=== PATIENT | male | born 1945 | race Caucasian/White ===

== ENCOUNTER 2016-07-21 22:44 | Inpatient (IN) | payer MEDICARE, OTHER, MEDICAID ==
[~2016-07-21] VITALS: Ht 162.6 cm; Wt 93.0 kg
--- NOTE | 2016-07-22 19:02 | ER ---
ADMIT: 07/21/2016 RM/LOC: ER [facility] MR#: [id number] [id number] [facility] [address] [place] [id number] JANINE HERNANDES [facility] [place] [address] Emergency Room Report SEX: M AGE: 71 : 1945 DATE: 07/21/2016 CHIEF COMPLAINT: Delirium. HISTORY OF PRESENT ILLNESS: The patient is a 71-year-old male with dementia, transferred from [facility] after becoming acutely delirious tonight at family gathering, excused himself, told his he is going to go take a shower. found him after an inappropriate amount of time in the bedroom on the treadmill naked, could not be redirected to the bathroom to take a shower, became worried when he dressed himself by putting underwear on his head, called 911, was evaluated at [facility] for possible stroke. Neurologist disagreed. Emergency physician recommended observation admission. Family declined since they seek care in [place] typically. Was transferred by [facility] ground transport. The patient denies any fevers, chills, nausea, vomiting, diarrhea, urinary symptoms, but does admit to ongoing nonproductive cough for the past month. The patient is undergoing research drug trial with [facility], last visit July 02. Unknown what medication he is studying. ALLERGIES: PENICILLIN, STATINS. MEDICATIONS: Please see nurse's MAR. ILLNESSES: Type 2 diabetes, hypertension, COPD, hyperlipidemia, dementia, depression, B12 deficiency, basal cell carcinoma, mild carotid occlusive disease. OPERATIONS: Cardiac bypass x2 in 2005. Last heart cath 2013 with no interventions. Ventricular septal defect repair at age 12. SOCIAL HISTORY: . Retired. Nonsmoker. Nondrinker. No illicit drugs. FAMILY HISTORY: Positive for premature ischemic heart disease in brother causing his . Negative for dementia. REVIEW OF SYSTEMS: A 12-point review of systems negative for all other systems, illnesses, or operations except as outlined above. PHYSICAL EXAMINATION: VITAL SIGNS: Temp 97, pulse 85, respirations 21, BP 152/92, and SaO2 of 94% on room air. GENERAL: Moderate distress, obtunded, nontoxic without diaphoresis. HEENT: Normocephalic. No evidence of epistaxis, rhinorrhea, or otorrhea. NECK: Supple without meningismus. CHEST: Clear. Breath sounds equal. HEART: Regular rate and rhythm without murmur, gallop, or edema. ABDOMEN: Soft, nontender, and nondistended without mass or megaly. Bowel sounds hypoactive. BACK: No CVA tenderness. EXTREMITIES: No evidence of Homans sign, synovitis, or dermatitis. ADMIT: 07/21/2016 RM/LOC: [facility] MR#: [id number] [address] [id number] JANINE HERNANDES [address] [place] [address] Emergency Room Report SEX: M AGE: 71 : 1945 NEURO: EOMI. PERRLA. No evidence of drift, dysarthria, or ataxia. GAIT: Actually normal when patient got up off caught by himself and wandered through the Emergency Department. MEDICAL DECISION MAKING: Reviewed CT scan from [facility] Smith, alex no acute findings. Chest x-ray, cardiomegaly without failure or infiltrate. Hemoglobin 11.4, CRP less than 0.29. Sodium 132, glucose 104, magnesium 1.7, procalcitonin 0.05, BN peptide 509, ammonia 16, INR 1.0, lactic 0.7. Tox screen negative. ETOH 7, troponin less than 0.015. UA; 3+ blood, 1+ leukocyte, 3 wbc's noted, cast specimen. EKG showed sinus rhythm with early transition, otherwise normal. Discussed findings. Disposition with Dr. Short and Dr. Tavares. Dr. Tavares gave orders to nursing staff. DIAGNOSES: 1. Dementia associated with acute delirium. 2. Acute urinary obstruction. 3. Coronary artery disease, status post coronary artery bypass graft. 4. Involved in research drug trial with [facility]. RECOMMENDATIONS: Admit observation to Med-Surg for Dr. Short. ADMISSION/DISCHARGE CONDITION: Stable. CODE STATUS: The patient is a full code. Wander Rios MD/ modl JOB #: [id number] CC: Wander Rios MD, Attending Physician Gerardo Novak MD, Family Physician MD Gerardo Fung MD
[2016-07-24] MEDS ORDERED: ZANTAC DPS150 MG PO (09:46)
[2016-07-24] MEDS ORDERED: LEXAPRO DPS20 MG PO (09:46)
[2016-07-24] MEDS ORDERED: RAMIPRIL5 MG PO (09:46)
[2016-07-24] MEDS ORDERED: TOPROL XL25 MG PO (09:48)
[2016-07-24] MEDS ORDERED: LIPITOR DPS20 MG PO (09:49)
[2016-07-24] MEDS ORDERED: MEMANTINE HCL10 MG PO (09:49)
[2016-07-24] MEDS ORDERED: RIVASTIGMINE6 MG PO (09:49)
[2016-07-24] MEDS ORDERED: GLUCOPHAGE-DPS500 MG PO (09:49)
[2016-07-24] MEDS ORDERED: ASPIR 8181 MG PO (09:50)
[2016-07-24] MEDS ORDERED: OMEGA-3 DPS1000 MG PO (09:50)
[2016-07-24] MEDS ORDERED: VITAMIN D31000 UNIT PO (09:51)
[2016-07-24] MEDS ORDERED: [UNRECOGNIZED DRUG - OTHER] PO (09:51)
[2016-07-24] MEDS ORDERED: VITAMIN B-121000 MCG IM (09:53)
[2016-07-24] MEDS ORDERED: MELATONIN5 MG PO (09:53)
[2016-07-24] MEDS ORDERED: DEPAKOTE ER500 MG PO (09:53)
[2016-07-24] MEDS ORDERED: TYLENOL DPS325 MG PO (09:54)
--- NOTE | 2016-08-13 10:58 | CO ---
ADMIT: 07/22/2016 RM/LOC: 415 [facility] MR#: [id number] [id number] [facility] [address] [place], [place] [address] JANINE HERNANDES [address] [place] [address] Consultation SEX: M AGE: 71 : 1945 DATE OF CONSULTATION: 07/22/2016 ATTENDING PHYSICIAN: Dean Short MD CONSULTING PHYSICIAN: Aguila Eagle MD REASON FOR CONSULTATION: Confusion. HISTORY OF PRESENT ILLNESS: The patient is a 71-year-old gentleman with Alzheimer dementia, who is well known to me from previous clinic encounters, who became acutely confused yesterday. He had a busy day with multiple family members. It was a birthday celebration after which he started to be confused more than usual. He was walking naked on a treadmill, then at some point when he sat down, he had a change of his alertness, he slumped over, and was not responding. After a few minutes, he started to wake up, but he was very slow and looking tired, and he was taken to [facility] for evaluation where initial workup was done, it did not show any acute abnormality. Per patient's family request, he was transferred to [facility] for further evaluation as his doctors are from [facility]. Reportedly, the patient was masturbating in the ER. PAST MEDICAL HISTORY: Significant for Alzheimer's dementia; atrial fibrillation; CAD, status post CABG; hypertension; hyperlipidemia; and skin cancer. SURGICAL HISTORY: Two-vessel bypass, VSD repair, and cholecystectomy. MEDICATIONS: He is on: 1. Ranitidine. 2. Ramipril. 3. Lexapro. 4. Metoprolol. 5. Metformin. 6. Rivastigmine 6 mg twice daily. 7. Memantine 10 mg twice daily. 8. Atorvastatin. 9. Invasive Cardiologist trial. 10.Fish oil. 11.Vitamin D. 12.Aspirin. 13.Vitamin B12. ALLERGIES: THE PATIENT IS ALLERGIC TO PENICILLIN AND STATINS. SOCIAL HISTORY: No tobacco. No illicit drugs. No alcohol. FAMILY HISTORY: Noncontributory to current presentation. REVIEW OF SYSTEMS: Difficult to obtain from the patient secondary to his ADMIT: 07/22/2016 RM/LOC: 415 [facility] MR#: [id number] [facility] [address] [place] [id number] JANINE HERNANDES [facility] [place] [address] Consultation SEX: M AGE: 71 : 1945 advanced dementia. PHYSICAL EXAMINATION: VITAL SIGNS: Temperature 96.2, heart rate 76, respirations 16, blood pressure 109/67, and saturation 94% on room air. NEUROLOGICAL: The patient is awake, alert, oriented to self, disoriented to place and time. He follows commands intermittently. He is calm. Mood is stable, euthymic. Affect is congruent with mood. Memory and attention are severely impaired. Speech and language intact. Cranial nerves II through XII intact. Visual field is normal. Pupils equal, reactive. Extraocular muscles intact. Facial sensation normal. Face is symmetric. Hearing to voice intact. Uvula midline. Palatal arch is symmetric. Shoulder shrug symmetric. Tongue is midline, moveable. Motor examination reveals full strength throughout. Fine motor movements are intact. Normal tone. Sensory, nonlateralizing to touch. Reflexes brisk in upper extremities and reduced in knees, absent in ankles. Toes downgoing bilaterally. Coordination; [id number] intact. Gait stable. LABORATORY DATA: Reviewed in electronic medical record as well as carotid Doppler which is unremarkable. No signs of infection nor metabolic derangements. The only positive finding is lower magnesium and sodium 132. ASSESSMENT: 1. Possible partial complex seizure with postictal state afterwards, now completely cleared. 2. Mild delirium prior to the seizure provoked by too much of activities/excitement with family meeting. 3. Severe dementia. PLAN: We will start Depakote 500 mg now and then 500 mg ER at bedtime. If he does not have reaction to the medication and keep stable, discharge tomorrow to home. EEG to be obtained on outpatient basis. Melatonin to be started 5 mg at bedtime for his insomnia. Followup with me will be to established with me in 2 to 3 weeks. Thank you very much for this interesting consultation. Aguila Eagle MD/ keenan JOB #: [id number] CC: Dean Short MD, Attending Physician Dean Short MD, Family Physician
--- NOTE | 2016-08-26 16:48 | HP ---
ADMIT: 07/22/2016 RM/LOC: 415 [facility] MR#: [id number] [id number] [facility] [address] [place] [phone] JANINE HERNANDES [address] [place] [address] History and Physical SEX: M AGE: 71 : 1945 DATE OF SERVICE: CHIEF COMPLAINT: Altered mental status. HISTORY OF PRESENT ILLNESS: This is a 71-year-old male with a past medical history significant for Alzheimer's dementia; coronary artery disease, status post CABG; hypertension; and atrial fibrillation, admitted with encephalopathy. According to the notes, Janine was spending time with his family yesterday afternoon when he abruptly had a change in behavior and became confused. He was later found walking on a treadmill naked. reports that he was very agitated and it took her three sons to get him off the treadmill and into the car. He was then taken to [facility] in [place] and worked up for a stroke. CT of his head was negative. An EKG showed normal sinus rhythm. His BNP was 394, lactic acid 1.8, magnesium 1.6, UA was negative, cardiac enzymes were negative, CBC showed mild anemia with a hemoglobin of 12, his BMP was significant for sodium of 128. Family asked that he be transferred here to [facility] due to their preference. does admit that his dementia has progressively worsened since seen Dr. Eagle back in May. She is also working with a community case manager at this time to help her get him set up for adult day care as well as get other services at home to help her care for him. In the Emergency Department, the patient's vital signs were stable. They did repeat some labs which were all negative. Other than that, they tried to get a UA via straight cath and he had blood with clots, so they put in a three way catheter. He was also cathed at [facility] and the blood was likely due to trauma. The only change in Janine's health recently was that he was enrolled in a drug trial with [facility]. is unsure exactly what the drug is for, but this is the only medication that has been changed recently. PAST MEDICAL HISTORY: 1. Alzheimer's dementia. 2. Atrial fibrillation. 3. Coronary artery disease, status post CABG. 4. Hypertension. 5. History of skin cancer. PAST SURGICAL HISTORY: 1. Two-vessel bypass back in 2005. 2. VSD repair at age 12. 3. Cholecystectomy. MEDICATIONS: 1. Ranitidine 150 mg one tab daily. 2. Ramipril 5 mg one tab daily. 3. Escitalopram 20 mg one tab daily. 4. Metoprolol succinate ER 25 mg take one and half tabs b.i.d. 5. Metformin 1000 mg one tab b.i.d. 6. Namenda 10 mg 2 tabs daily. 7. Rivastigmine 6 mg one capsule take it twice daily. ADMIT: 07/22/2016 RM/LOC: 415 [facility] MR#: [id number] [address] [address] CECILIOJANINE Harshil [facility] [place] [address] History and Physical SEX: M AGE: 71 : 1945 8. Atorvastatin 80 mg, one tab daily. 9. [employer] trial which is take twice daily. 10. one tab daily. 11.Fish oil two tabs daily. 12.Vitamin D3, one daily. 13.Baby aspirin, two daily. 14.Vitamin B12 shot one every 3 to 4 months. ALLERGIES: PENICILLIN, STATINS, HMG. SOCIAL HISTORY: He denies tobacco, alcohol, or illegal drug use. He does live at home with his . FAMILY HISTORY: Noncontributory. REVIEW OF SYSTEMS: This is difficult to obtain due to the patient's mental status. He did deny having any pain, fevers, nausea, vomiting, diarrhea, constipation, or weakness PHYSICAL EXAMINATION: VITAL SIGNS: Blood pressure 140/91, pulse 94, respirations 16, temp 97.5, saturating 95% on room air. GENERAL: He is alert and oriented to person, but not time or place. HEART: Regular rate and rhythm. No murmur. LUNGS: Clear. ABDOMEN: Soft, nontender, nondistended. Positive bowel sounds. EXTREMITIES: No edema. Muscle strength was equal bilaterally for both upper and lower extremities. LABORATORY DATA: [facility] labs are attached in his chart. [facility] lab results; sodium 134, potassium 3.8, creatinine 1.3. White count 12.1, hemoglobin 11.5, platelets 313, magnesium 1.7. BNP 509. Toxicology screen was negative. Chest x-ray was negative. His UA showed 3+ blood, and 1+ leuk esterase. His ABG was normal. Ammonia level was 16. Alcohol was ADMIT: 07/22/2016 RM/LOC: 415 [facility] MR#: [id number] [address] [address] JANINE HERNANDES [address] [place] [address] History and Physical SEX: M AGE: 71 : 1945 negative. ASSESSMENT AND PLAN: 1. Alzheimer's dementia. We will consult Neurology since he sees Dr. Eagle in follows closely with him. His labs and CT were all negative. I do feel that his behavior change is likely due to advancing dementia but would appreciate Neurology's help with this. I will add carotid Dopplers onto his workup to rule out a TIA. 2. Hypomagnesemia. We will replace his magnesium today and recheck. I will likely allow him to go home if all labs are normal and it is okay with Neurology. He should follow up with his PCP within one week if that is the case. Mary Tavares DO Resident / Dean Short MD / keenan JOB #: [id number] CC: Dean Short, Attending Physician Dean Short, Family Physician
--- NOTE | 2016-10-06 15:45 | DS ---
ADMIT: 07/22/2016 RM/LOC: 415 [facility] MR#: [id number] [address] [address] JANINE HERNANDES [facility] [place] [address] Discharge Summary SEX: M AGE: 71 : 1945 ADMISSION DATE: 07/22/2016 DISCHARGE DATE: 07/23/2016 FINAL DIAGNOSES: 1. Alzheimer's type dementia. 2. Hypomag. 3. Delirium. 4. Partial complex seizure with postictal state. 5. Urinary obstruction. Dean Short MD/ rose JOB #: [id number] CC: Dean Short MD, Attending Physician Dean Short MD, Family Physician
== END 2016-07-23 10:49 | disposition home or self-care (01) | DRG 101 ==
LOC: ER 22:44 → 4PCU 07-22 00:30
PROVIDERS: ADMIT Family Medicine
DX: G40.209 Localization-related (focal) (partial) symptomatic epilepsy and epileptic syndromes with complex partial seizures, not intractable, without status epilepticus (principal); E83.42 Hypomagnesemia; G30.9 Alzheimer's disease, unspecified; I48.91 Unspecified atrial fibrillation; F02.80 Dementia in other diseases classified elsewhere, unspecified severity, without behavioral disturbance, psychotic disturbance, mood disturbance, and anxiety; E11.9 Type 2 diabetes mellitus without complications; I10 Essential (primary) hypertension; J44.9 Chronic obstructive pulmonary disease, unspecified; E78.5 Hyperlipidemia, unspecified; F32.9 Major depressive disorder, single episode, unspecified; R31.9 Hematuria, unspecified; E53.8 Deficiency of other specified B group vitamins; I65.21 Occlusion and stenosis of right carotid artery; N13.9 Obstructive and reflux uropathy, unspecified; I25.10 Atherosclerotic heart disease of native coronary artery without angina pectoris; Z82.49 Family history of ischemic heart disease and other diseases of the circulatory system; Z85.828 Personal history of other malignant neoplasm of skin; Z95.1 Presence of aortocoronary bypass graft; Z79.84 Long term (current) use of oral hypoglycemic drugs